=== PATIENT | female | born 1985 | race Caucasian/White ===

== ENCOUNTER 2019-10-20 04:58 | Inpatient (IN) | payer OTHER, MEDICAID ==
[~2019-10-20] VITALS: Ht 157.5 cm; Wt 103.9 kg
[2019-10-20] MEDS ORDERED: CALDOLOR 800MG+NS 250ML 250 ML IV PRN (05:00)
[2019-10-20] MEDS ORDERED: CEFAZOLIN SODIUM 1 GM VIAL IVP PRN ×2 (05:00→06:30)
[2019-10-20] MEDS ORDERED: LACTATED RINGERS 1000ML 1,000 ML IV SCH (05:00)
[2019-10-20 05:58] LABS: APPEARANCE,URINE Cloudy (CLEAR); BILIRUBIN,URINE Negative (NEGATIVE); COLOR,URINE Dark Yellow (YELLOW); GLUCOSE, URINE (UA) Negative (NEGATIVE); KETONES,URINE Trace mg/dL (NEGATIVE); LEUKOCYTE ESTERASE ,URINE Negative (NEGATIVE); NITRATE,URINE Negative (NEGATIVE); OCCULT BLOOD,URINE Negative (NEGATIVE); PH,URINE 5.5 (5.0-8.0); PROTEIN,URINE 300 mg/dL (NEGATIVE)
[2019-10-20 05:59] LABS: MEAN CORPUSCULAR HEMOGLOBIN 30.2 pg (27.0-33.0); MEAN CORPUSCULAR HGB CONC 33.5 g/dL (32.0-36.0); RED BLOOD CELL COUNT(AUTO) 4.11 MIL/uL (4.00-5.50); RED CELL DISTRIBUTION WIDTH 13.2 % (11.0-15.5); WHITE BLOOD COUNT (AUTO) 11.7 K/uL (4.8-10.8)
[2019-10-20 05:59] LABS: BACTERIA,URINE Few /HPF (None Seen); SQUAMOUS EPITHELIAL CELL,UR Moderate /HPF (0-2)
[2019-10-20 06:28] VITALS: BP 172/98
[2019-10-20 07:29] LABS: BASOPHILS % (AUTO) 0.4 % (0.0-5.0); HEMATOCRIT 36.7 % (36-48); LYMPHOCYTES % (AUTO) 24.2 % (21.0-51.0); MEAN CORPUSCULAR HEMOGLOBIN 29.4 pg (27.0-33.0); MEAN CORPUSCULAR HGB CONC 32.2 g/dL (32.0-36.0); MEAN CORPUSCULAR VOLUME 91.5 fL (79-99); MONOCYTES % (AUTO) 6.6 % (3.0-13.0); NEUTROPHILS % (AUTO) 65.4 % (40.0-77.0); PLATELET COUNT (AUTO) 178 K/uL (130-400); RED BLOOD CELL COUNT(AUTO) 4.01 MIL/uL (4.00-5.50); RED CELL DISTRIBUTION WIDTH 13.2 % (11.0-15.5)
[2019-10-20] MEDS ORDERED: DURAMORPH PF1 MG/ML 10ML AMP IV ONE (07:40)
[2019-10-20] MEDS ORDERED: ONDANSETRON HCL 4 MG/2 ML VIAL ONE ×2 (07:41→10:17)
[2019-10-20 07:45] LABS: INR 0.8 (0.85-1.15); PARTIAL THROMBOPLASTIN TIME 24.1 SEC (26.3-35.5); PROTHROMBIN TIME 8.7 SEC (9.6-11.6)
[2019-10-20] MEDS ORDERED: CEFAZOLIN SODIUM 1 GM VIAL IVP ONE (07:45)
[2019-10-20 07:46] LABS: CREATININE 0.6 mg/dL (0.5-1.5)
[2019-10-20 07:50] LABS: ALBUMIN 2.2 g/dL (3.5-5.0); BILIRUBIN,TOTAL 0.5 mg/dL (0.2-1.0); TOTAL PROTEIN, SERUM 5.9 g/dL (6.0-8.3); URIC ACID 5.6 mg/dL (2.6-7.2)
[2019-10-20] MEDS: DOCUSATE SODIUM 100 MG CAP PO SCH ×2 (09:00→21:00)
[2019-10-20] MEDS ORDERED: OXYTOCIN-LR 20 UNITS/1000 ML 1,000 ML IV PRN (09:00)
[2019-10-20] MEDS ORDERED: LANOLIN 30GM OINTMENT TP PRN (09:00)
[2019-10-20] MEDS ORDERED: DEXTROSE 5 %-0.45 % NACL 1,000 ML IV PRN (09:00)
[2019-10-20] MEDS ORDERED: DIPHENHYDRAMINE HCL 25 MG CAPSULE PO PRN (09:00)
[2019-10-20] MEDS ORDERED: LIDOCAINE 5% TOPICAL PATCH TP SCH (09:00)
[2019-10-20] MEDS ORDERED: PROMETHAZINE HCL 25 MG/ML 1ML AMPULE IM PRN (09:00)
[2019-10-20] MEDS ORDERED: ACETAMINOPHEN-CODEINE 300/30MG TAB PO PRN (09:00)
[2019-10-20] MEDS ORDERED: SIMETHICONE 80 MG TAB.CHEW PO PRN (09:00)
[2019-10-20] MEDS ORDERED: BISACODYL 10 MG SUPP.RECT RC PRN (09:00)
[2019-10-20] MEDS ORDERED: ACETAMINOPHEN EXTRA STRENGTH 500 MG TABLET PO PRN (09:00)
[2019-10-20] MEDS ORDERED: MEPERIDINE-PF 75 MG/ML SYG IM PRN (09:00)
[2019-10-20] MEDS ORDERED: HYDROCODONE/ACETAMINOPHEN 5/325 MG TAB PO PRN (09:00)
[2019-10-20] MEDS ORDERED: SODIUM CHLORIDE 0.9% 10 ML VIAL IVP PRN (09:00)
[2019-10-20] MEDS ORDERED: MEASLES/MUMPS/RUBELLA VACCINE, LIVE 0.5 ML/VIAL SQ PRN (09:00)
[2019-10-20] MEDS ORDERED: DIPH,PERTUSS(ACELL),TET VAC/PF 0.5 ML VIAL IM PRN (09:00)
[2019-10-20] MEDS: IBUPROFEN 800 MG TAB PO SCH ×2 (09:00→17:00)
[2019-10-20] MEDS: LACTATED RINGERS 1000ML 1,000 ML IV SCH (11:47)
[2019-10-20] MEDS ORDERED: MAGNESIUM SULFATE 1,000 ML IV PRN (11:47)
[2019-10-20] MEDS ORDERED: MAGNESIUM 4GM PREMIX 100ML 100 ML IV PRN ×2 (12:00)
[2019-10-20] MEDS ORDERED: CALCIUM GLUCONATE 1 GM/10 ML VIAL IV PRN (12:00)
[2019-10-20] MEDS ORDERED: MEPERIDINE-PF 25 MG/ML SYG ONE (17:46)
[2019-10-20] MEDS ORDERED: MEPERIDINE-PF 50 MG/ML SYG ONE (17:46)
[2019-10-20] MEDS: CALDOLOR 800MG+NS 250ML 250 ML IV SCH (20:36)
--- NOTE | 2019-10-21 00:30 | NUR ---
transferring from LDR 106 to PP rm 112 via bed; Orienting to room, nurse call button and bed controls; encouraging to call for any assistance. Pt preparing to breastfeed; requesting pain med after done feeding. Addendum: 10/21/19 at 0158 by ANAID BARBER RN RN Amended: Links added.
--- NOTE | 2019-10-21 00:30 | NUR ---
LR with Pitocin continues at 150ml/hr via pump. Addendum: 10/21/19 at 0155 by ANAID BARBER RN RN Amended: Links added.
[2019-10-21] MEDS: IBUPROFEN 800 MG TAB PO SCH ×2 (01:00→12:59)
[2019-10-21] MEDS: LACTATED RINGERS 1000ML 1,000 ML IV SCH (01:07)
--- NOTE | 2019-10-21 02:00 | NUR ---
Mamie #3 started ivpb. Reinforcing teaching on med and prn pain meds available. Pt voices understanding & reports adequate pain relief with prev [place] given. Addendum: 10/21/19 at 0258 by ANAID BARBER RN RN Amended: Links added.
[2019-10-21] MEDS: CALDOLOR 800MG+NS 250ML 250 ML IV SCH (02:14)
--- NOTE | 2019-10-21 04:19 | NUR ---
Explaining normal rubra decreases each day; instructing to report increase in rubra, or any clots. Pt agrees to teaching. Addendum: 10/21/19 at 0421 by ANAID BARBER RN RN Amended: Links added.
[2019-10-21] MEDS ORDERED: PREN1TAB80 PO (04:37)
[2019-10-21] MEDS ORDERED: ASPI-556 PO (04:37)
[2019-10-21] MEDS ORDERED: HYDR25TA PO (04:37)
[2019-10-21] MEDS ORDERED: METHY250 PO (04:37)
[2019-10-21] MEDS ORDERED: FERR-82 PO (04:37)
[2019-10-21 07:13] LABS: HEPATITIS Bs ANTIGEN SCREEN P Negative (Negative)
--- NOTE | 2019-10-21 07:15 | NUR ---
Explaining blood sample needed for lab this am as per md orders. Pt voices understanding & agrees to plan. Pt reports abd discomfort to incision & soreness; requesting tylenol #3 for discomfort. Informing will notify Brad Fnues who will assume care. pt agrees to plan.
[2019-10-21 07:27] LABS: HEMATOCRIT 31.1 % (36-48); MEAN CORPUSCULAR HEMOGLOBIN 29.7 pg (27.0-33.0); MEAN CORPUSCULAR HGB CONC 32.8 g/dL (32.0-36.0); MEAN CORPUSCULAR VOLUME 90.4 fL (79-99); RED BLOOD CELL COUNT(AUTO) 3.44 MIL/uL (4.00-5.50); RED CELL DISTRIBUTION WIDTH 13.5 % (11.0-15.5); WHITE BLOOD COUNT (AUTO) 11.5 K/uL (4.8-10.8)
[2019-10-21 07:45] VITALS: BP 129/80
[2019-10-21] MEDS ORDERED: HYDROCHLOROTHIAZIDE 25 MG TABLET PO SCH (09:00)
[2019-10-21] MEDS: DOCUSATE SODIUM 100 MG CAP PO SCH (09:20)
--- NOTE | 2019-10-21 09:25 | NUR ---
STOCK CATHETER REMOVED WITH TIP INTACT AT THIS TIME. 700ML OF CLEAR YELLOW URINE EMPTIED.
[2019-10-21 12:02] VITALS: BP 147/80
--- NOTE | 2019-10-21 12:55 | NUR ---
PATIENT AMBULATING IN HALLWAY. REPORTS +[id number].
--- NOTE | 2019-10-21 13:25 | NUR ---
DISCHARGE INSTRUCTION REVIEWED WITH PATIENT. REEDUCATED PATIENT ON INCISION CARE. HANDOUTS FOR CARE AFTER SECTION HEMORRHAGE, PPDEPRESSION AND COVID 19 GIVEN TO PATIENT. RX FOR TYLENOL #3, COLACE 100MG AND MOTRIN 800MG HANDED TO PATIENT IN DISCHARGE FOLDER. PT VERBALIZED UNDERSTANDING ON ALL INFORMATION.
--- NOTE | 2019-10-21 15:40 | NUR ---
PATIENT LEFT UNIT VIA WHEELCHAIR WITH BABY IN ARMS. PERSONAL VEHICLE USED FOR TRANSPORTATION ACCOMPANIED BY SIGNIFICANT OTHER. BABY SECURE IN CARSEAT. NO COMPLAINTS OR CONCERNS ADDRESSED FROM PATIENT ON DISCHARGE.
== END 2019-10-21 15:40 | disposition home or self-care (01) | DRG 788 ==
LOC: LDH 04:58 → WSH 10-21 00:24
PROVIDERS: ADMIT Obstetrics & Gynecology; ATTEND Obstetrics & Gynecology
PROC: 3E0234Z Introduction of Serum, Toxoid and Vaccine into Muscle, Percutaneous Approach (ICD-10-PCS; 2019-10-20)
PROC: 3E0134Z Introduction of Serum, Toxoid and Vaccine into Subcutaneous Tissue, Percutaneous Approach (ICD-10-PCS; 2019-10-20)
PROC: 10D00Z1 Extraction of Products of Conception, Low, Open Approach (ICD-10-PCS; principal; 2019-10-20 07:30)
DX: O11.4 Pre-existing hypertension with pre-eclampsia, complicating childbirth (principal); O32.1XX0 Maternal care for breech presentation, not applicable or unspecified; O34.03 Maternal care for unspecified congenital malformation of uterus, third trimester; O69.1XX0 Labor and delivery complicated by cord around neck, with compression, not applicable or unspecified; E66.9 Obesity, unspecified; O99.214 Obesity complicating childbirth; Q51.4 Unicornate uterus; Z3A.38 38 weeks gestation of pregnancy; Z37.0 Single live birth; Z23 Encounter for immunization
CPT/HCPCS: 36415; 59510; 80053; 81001; 84550; 85025; 85027; 85384; 85610; 85730; 86592; 86850; 86900; 86901; 87340; A4344; G0378; J0690; J1741; J2175; J2274; J2405; J2550; J2590; J3475; J7042; J7120